=== PATIENT | female | born 1970 | race Caucasian/White ===

== ENCOUNTER 2020-09-16 08:12 | Emergency (ER) | payer BC, SELFPAY ==
[2020-09-16 08:17] VITALS: BP 116/65; PULSE 75; RESP 18; TEMP 36.4; O2SAT 97
--- NOTE | 2020-09-16 08:18 | ED.ALLEREA ---
HPI - Allergic Reaction General Chief complaint: Allergic Reaction Stated complaint: rash, body aches after covid vaccine Time Seen by Provider: 09/16/20 08:18 Source: patient and family Mode of arrival: ambulatory Limitations: no limitations History of Present Illness HPI narrative: Patient is a 50-year-old female with a history of chronic lower back pain who presents for evaluation of acute worsening of pain. Patient states that she received her second series of the [place] Covid vaccination, did get and to develop myalgias, rash overlying her chest and arms. Patient then sneezed at home yesterday and experienced extreme worsening of her chronic lower back pain that is consistent with a flareup. Patient states that she has flareups of her lower back pain every year, in the past she has seen a chiropractor for this. Patient recently relocated to this area from [facility] [place] [facility] and has not established care with any providers yet. Patient denies any fall or injury. No fever. No history of IV drug abuse. No bowel or bladder incontinence or difficulty. She has been ambulatory. She denies lower leg weakness or numbness. Related Data Home Medications Medication Instructions Recorded Confirmed Multivitamin Gummies 09/16/20 Allergies Allergy/AdvReac Type Severity Reaction Status Date / Time COVID-19 vaccine, mRNA, Allergy Rash Verified 09/16/20 08:22 [id number], L Review of Systems Review of Systems: Narrative: CONSTITUTIONAL: Denies fever, chills, or sweats. EYES: Denies visual changes, redness, or discharge. ENT: Denies rhinorrhea, congestion, sore throat, or otalgia. CARDIOVASCULAR: Denies chest pain, palpitations, or edema. RESPIRATORY: Denies cough or dyspnea. GASTROINTESTINAL: Denies abdominal pain, nausea, vomiting, or diarrhea. GENITOURINARY: Denies dysuria or hematuria. SKIN: Denies rash or itching. MUSCULOSKELETAL: Reports lower back pain and mild myalgia NEUROLOGIC: Denies headache, numbness, or weakness. [facility] Social History Social History (Updated 09/16/20 @ 09:08 by Karissa Bell MD) Smoking status: Never smoker Alcohol intake: never Substance use: current Substance use type: other Other substance usage details: CBD Gummies Gender identity (if verbalized by the patient): Female Exam Narrative: Exam Narrative: GENERAL: Awake, alert, conversant HEAD: Normocephalic, atraumatic. EYES: PERRLA and EOMI. ENT: Nares clear, no rhinorrhea or epistaxis. Mucous membranes moist. NECK: Supple. CHEST: No respiratory distress, breathing even and non labored HEART: Regular rate, sinus rhythm ABDOMEN:Non distended, non tender Thorax: Positive lumbar paraspinal tenderness to palpation which reproduces pain. No step-offs or deformities. No erythema. EXTREMITIES: Normal range of motion. No edema. SKIN: Warm, dry, no rash. NEURO:No focal deficits. Alert and oriented x3. Intact EHL/FHL. Strength in the bilateral lower extremities 5/5. Course Vital Signs Vital signs: Vital Signs Temperature 36.4 C 09/16/20 08:17 Pulse Rate 75 09/16/20 08:17 Respiratory Rate 18 09/16/20 08:17 Blood Pressure 116/65 09/16/20 08:17 Pulse Oximetry 97 09/16/20 08:17 Temperature 36.4 C 09/16/20 08:17 Pulse Rate 85 09/16/20 09:46 Respiratory Rate 15 09/16/20 09:46 Blood Pressure 100/59 L 09/16/20 09:46 Pulse Oximetry 99 09/16/20 09:46 MDM - Allergic Reaction MDM Narrative Medical decision making narrative: Given History and Exam the patient appears to be at low risk for Spinal Cord Compression Syndrome, Vertebral Malignancy/Mets, acute Spinal Fracture, Vertebral Osteomyelitis, Epidural Abscess, Infected or Obstructing Kidney Stone. Their presentation appears most likely to be secondary to non-emergent musculoskeletal etiology vs non-emergent disc herniation. Pain is consistent with history of pain and patient. No new features to pain. Patient has inciting event where the
[2020-09-16 08:55] LABS: Add Urine Microscopic? YES; Appearance Urine Cloudy (Clear); Bilirubin Urine Negative (Negative); Blood Urine Negative (Negative); Color Urine Yellow (Yellow); Glucose Urine UA Negative (Negative); Ketones Urine Trace mg/dL (Negative); Leukocyte Esterase Ur Negative LEU/UL (Negative); Mucus Urine Heavy /lpf; Nitrate Urine Negative (Negative); Protein Urine 1+ mg/dL (Negative); RBC Urine 0-2 /hpf (0-2); Specific Grav Ur 1.028 (1.001-1.035); Squamous Epithelial Cell Urine Many /hpf (Few); Urobilinogen Urine Negative mg/dL (<2.0); WBC Urine 0-3 /hpf
[2020-09-16] MEDS: diazePAM (*CRX) 5 MG TABLET PO (09:21)
[2020-09-16] MEDS: predniSONE 20 MG TABLET 60 MG PO (09:21)
[2020-09-16] MEDS: ACETAMINOPHEN 500 MG TABLET 1000 MG PO (09:21)
[2020-09-16] MEDS: KETOROLAC (*BKC) 60 MG/2 ML VIAL 30 MG IM (09:21)
[2020-09-16 09:46] VITALS: BP 100/59; PULSE 85; RESP 15; O2SAT 99
[2020-09-16 09:47] LABS: Basophils Percent Auto 0.3 % (0.2-1.2); Eosinophils Absolute Auto 0.2 K/mm3 (0-0.3); Eosinophils Percent Auto 1.6 % (0-4.4); Hematocrit 43.7 % (37.0-47.0); Hemoglobin 14.4 g/dL (12.0-15.0); Immature Granulocyte Absolute 0.04 K/mm3 (0.00-0.031); Immature Granulocyte Percent A 0.4 % (0-0.5); Lymphocytes Percent Auto 8.2 % (18.3-44.2); Mean Corpuscular Hemoglobin 32.2 pg (26-34); Mean Corpuscular Volume 97.8 fl (80-100); Mean Platelet Volume 10.6 fl (7.4-10.4); Monocytes Absolute Auto 0.5 K/mm3 (0.1-0.6); Monocytes Percent Auto 4.1 % (2.6-8.5); Neutrophils Absolute Auto 9.4 K/mm3 (1.3-6.7); Neutrophils Percent Auto 85.4 % (45.5-73.1); Platelet Count Result 204 k/mm3 (150-375); Red Blood Count 4.47 M/mm3 (4.2-5.4); Red Cell Distribution Width 12.6 % (11.5-14.5)
[2020-09-16 09:56] LABS: Anion Gap 8 mmol/L (8-16); Blood Urea Nitrogen 11 mg/dL (7-17); Carbon Dioxide 28 mmol/L (22-30); Chloride 103 mmol/L (98-107); Estimated CRCL calculation 84 ml/min; Estimated Glomerular Filt Rate > 60; Glucose 103 mg/dL (65-105); Potassium 4.1 mmol/L (3.4-5.0); Sodium 139 mmol/L (137-145)
[2020-09-16 10:38] VITALS: BP 101/63; PULSE 68; RESP 17; O2SAT 97
== END 2020-09-16 10:42 | disposition home or self-care (01) ==
PROVIDERS: Emergency Provider Emergency Medicine
DX: M54.5 Low back pain (principal); G89.29 Other chronic pain; T78.40XA Allergy, unspecified, initial encounter
CPT/HCPCS: 36415; 80048; 81001; 85025; 96372; 99283; A9270; J1885; J7512

== ENCOUNTER 2021-11-21 14:30 | Outpatient (CLI) | payer BC, SELFPAY ==
--- NOTE | ~2021-11-21 | MR_ITS ---
EXAMINATION: MR lumbar spine wo con DATE: 11/21/2021 15:32 INDICATION: Low back pain TECHNIQUE: Magnetic resonance imaging (MRI) of the lumbar spine was performed without intravenous con trast. Sequences included sagittal T2-weighted FSE, sagittal T2-weighted FS FSE, sagittal T1-weighted FSE, and axial T2-weighted FSE. COMPARISON: None FINDINGS: . Degree lumbar levocurvature. 1-2 mm retrolisthesis L3 on L4 and L4-L5. 3 mm retrolisthesis L5 on S1 . Vertebral body heights are normal. Schmorl's nodes along both sides of the L2-L3 disc space. Severe disc height loss with degenerative fibrofatty and fibrovascular endplate changes at L5-S1. Moderate disc height loss at L1-L2. Mild disc height loss at T10-T11, L2-L3 and at the right side of L4-L5. Ad ditional mild fibrovascular degenerative endplate changes along the anterior superior endplates of L2 and L3. The conus medullaris terminates at L1-L2. There is normal signal in the caudal spinal cord. Paravertebral soft tissues are unremarkable. The following disc levels are specifically discussed: T12-L1: The disc does not extend beyond the endplate margin. There is no facet joint osteoarthritis. There is no neural foraminal stenosis. There is no central canal stenosis. L1-L2: Disc is mildly bulging with superimposed annular fissure and left paracentral disc extrusion w ith disc material extending 4-5 mm cephalad to the level of the inferior endplate of L1. There is mil d left and moderate right facet joint osteoarthritis. There is no neural foraminal stenosis. There is mild central canal stenosis. L2-L3: Disc is mildly bulging with superimposed annular fissure and left paracentral disc extrusion w ith disc material extending approximately 3 mm cephalad and caudal to the level of the endplates. The re is mild left and mild to moderate right facet joint osteoarthritis. There is mild left and minimal right neural foraminal stenosis. There is mild central canal stenosis. L3-L4: Disc is bulging with superimposed annular fissure and bilateral foraminal zone disc extrusions with disc material extending 2-3 mm cephalad and caudal to the level of the endplates on the left an d 3 mm caudal to the superior endplate of L4 on the right. There is mild bilateral facet joint osteoa rthritis. There is moderate left and mild to moderate right neural foraminal stenosis. There is mild central canal stenosis. L4-L5: Disc is bulging with annular fissure. There is mild bilateral facet joint osteoarthritis. Ther e is mild to moderate bilateral neural foraminal stenosis. There is mild central canal stenosis. L5-S1: Annular fissure and broad-based disc extrusion centered from foraminal zone to foraminal zone with disc material extending a couple millimeters cephalad and caudal to the level of the endplates. There is mild right and mild to moderate left facet joint osteoarthritis. There is moderate bilateral neural foraminal stenosis. There is minimal central canal stenosis. IMPRESSION: 1. Spondylosis, severe at L5-S1 and mild to moderate in the more cephalad lumbar and lower thoracic s pine. Reviewed, dictated and finalized at location A. IMPRESSION: 1. Spondylosis, severe at L5-S1 and mild to moderate in the more cephalad lumba r and lower thoracic spine.
--- NOTE | ~2021-11-21 | MR_ITS ---
EXAMINATION: MR cervical spine wo con DATE: 11/21/2021 15:29 INDICATION: Neck pain TECHNIQUE: Magnetic resonance imaging (MRI) of the cervical spine was performed without intravenous c ontrast. Sequences included sagittal T2-weighted FSE, sagittal T2-weighted FS FSE, sagittal T1-weight ed FSE, axial MERGE and axial T2-weighted FSE. COMPARISON: None FINDINGS: Mild reversal of the normal lordosis in the lower cervical spine. 1-2 mm anterolisthesis C2 on C3 and C3 on C4 Vertebral body heights are normal. Severe disc height loss at C6-C7, moderate disc height l oss at C5-C6, both with associated fibrofatty degenerative endplate changes. Marrow signal is otherwi se normal. Additional mild disc height loss at C4-C5, T2-T3 and T3-T4. There is disc bulge with super imposed annular fissure and left paracentral disc extrusion at T2-T3 seen only on the sagittal images with disc material extending a few millimeters cephalad and caudal to the level of the endplates an resulting in mild central canal stenosis. The cervical spondylosis will be discussed on a level by le mack basis below. Cord signal intensity is normal. The following disc levels are specifically discusse d: C2-C3: The disc does not extend beyond the more posterior C3 endplate margin. There is mild left unco vertebral joint osteoarthritis. There is moderate right and severe left facet joint osteoarthritis. T here is mild left neural foraminal stenosis. There is no central canal stenosis. C3-C4: The disc does not extend beyond the more posterior C4 endplate margin. There is mild bilateral uncovertebral joint osteoarthritis. There is severe bilateral facet joint osteoarthritis. There is m ild right and mild to moderate left neural foraminal stenosis. There is no central canal stenosis. C4-C5: Disc is mildly bulging. There is mild right and moderate left uncovertebral joint osteoarthrit is. There is moderate right and severe left facet joint osteoarthritis. There is mild to moderate lef t neural foraminal stenosis. There is no central canal stenosis. C5-C6: Posterior disc osteophyte complex. There is severe bilateral uncovertebral joint osteoarthriti s. There is mild right and moderate left facet joint osteoarthritis. There is mild right and moderate left neural foraminal stenosis. There is mild central canal stenosis with flattening of the ventral surface of the cord. C6-C7: Posterior disc osteophyte complex. There is severe bilateral uncovertebral joint osteoarthriti s. There is moderate bilateral facet joint osteoarthritis. There is moderate bilateral neural foramin al stenosis. There is mild central canal stenosis with flattening of the ventral surface of the cord. C7-T1: The disc does not extend beyond the endplate margin. There is no uncovertebral joint osteoarth ritis. There is right and severe left facet joint osteoarthritis. There is mild bilateral neural fora christa stenosis. There is no central canal stenosis. IMPRESSION: 1. Severe lower cervical spondylosis. Reviewed, dictated and finalized at location A.
[2021-11-21 16:19] LABS: Hematocrit 42.4 % (37.0-47.0); Mean Corpuscular Hemoglobin 32.6 pg (26-34); Mean Corpuscular Volume 98.6 fl (80-100); Mean Platelet Volume 10.2 fl (7.4-10.4); Platelet Count Result 250 k/mm3 (150-375); Red Cell Distribution Width 12.8 % (11.5-14.5); White Blood Count 8.5 K/mm3 (4.5-10.0)
[2021-11-21 16:39] LABS: Alanine Aminotransferase 38 U/L (6-35); Albumin Level 5.1 g/dL (3.5-5.1); Alkaline Phosphatase 93 U/L (38-126); Anion Gap 9 mmol/L (8-16); Aspartate Amino Transferase 39 U/L (14-36); Bilirubin,Total 0.4 mg/dL (0.2-1.3); Blood Urea Nitrogen 12 mg/dL (7-17); CRP < 0.5 mg/dL (<1.0); Calcium 9.6 mg/dL (8.4-10.2); Carbon Dioxide 26 mmol/L (22-30); Chloride 98 mmol/L (98-107); Creatine Kinase 136 U/L (30-135); Estimated Glomerular Filt Rate > 60; Glucose 100 mg/dL (65-110); Potassium 3.8 mmol/L (3.4-5.0); Sodium 133 mmol/L (137-145); Uric Acid 4.3 mg/dL (2.5-7.5)
[2021-11-21 16:43] LABS: Appearance Urine Clear (Clear); Bilirubin Urine Negative (Negative); Color Urine Yellow (Yellow); Glucose Urine UA Negative (Negative); Ketones Urine Negative (Negative); Leukocyte Esterase Ur Negative LEU/UL (NEGATIVE); Nitrate Urine Negative (Negative); Protein Urine Negative (Negative); Urobilinogen Urine 0.2 mg/dL (<2.0); pH Urine 6.5 (5.0-9.0)
[2021-11-21 16:44] LABS: Complement C3 97 mg/dL (88-165)
[2021-11-21 16:45] LABS: Add Urine Microscopic? YES; Blood Urine Trace-Intact (Negative)
[2021-11-21 16:49] LABS: Squamous Epithelial Cell Urine Occasional /hpf (Few); WBC Urine 0-3 /hpf (0-3)
[2021-11-21 16:53] LABS: Erythrocyte Sedimentation Rate 6 mm/hr (0-20)
[2021-11-21 17:36] LABS: Free T4 Free Thyroxine 0.78 ng/mL (0.78-2.19); Vitamin D 25 Hydroxy 59.1 ng/mL
[2021-11-21 17:37] LABS: Folic Acid 6.9 ng/mL (2.76->20)
[2021-11-21 17:50] LABS: Hemoglobin A1C 5.1 % (<5.7)
[2021-11-26 11:11] LABS: Lupus dRVVT 1:1 Mix Interpreta Not Indicated; Lupus dRVVT Screen 27 sec (<=45); PTT-LA Screen 34 sec (<=40)
[2021-11-26 12:01] LABS: Complement Total CH50 >60 U/mL (31-60)
[2021-11-27 12:46] LABS: Albumin 4.8 g/dL (3.8-4.8); Alpha 1 Globulin 0.3 g/dL (0.2-0.3); Alpha 2 Globulin 0.7 g/dL (0.5-0.9); Beta 1 Globulin 0.5 g/dL (0.4-0.6); Gamma Globulin 0.9 g/dL (0.8-1.7); Protein, Total 7.5 g/dL (6.1-8.1)
== END 2021-11-21 14:31 | disposition home or self-care (01) ==
PROVIDERS: PCP Registered Nurse; Visit Provider Internal Medicine Rheumatology
DX: G62.9 Polyneuropathy, unspecified (principal); R53.83 Other fatigue; M19.90 Unspecified osteoarthritis, unspecified site; M79.10 Myalgia, unspecified site; R73.09 Other abnormal glucose; E55.9 Vitamin D deficiency, unspecified; E53.8 Deficiency of other specified B group vitamins; D50.9 Iron deficiency anemia, unspecified; M47.897 Other spondylosis, lumbosacral region; M47.894 Other spondylosis, thoracic region; M47.896 Other spondylosis, lumbar region; M47.892 Other spondylosis, cervical region
CPT/HCPCS: 36415; 72141; 72148; 80053; 81001; 82306; 82550; 82570; 82607; 82728; 82746; 83036; 83520; 83521; 83735; 84155; 84156; 84165; 84166; 84207; 84425; 84439; 84550; 85027; 85613; 85652; 85730; 86140; 86146; 86147; 86160; 86162; 86334; 86335